=== PATIENT | male | born 1985 | race Two or more races ===

== ENCOUNTER 2023-12-01 11:16 | Inpatient (IN) | payer MEDICAID ==
[~2023-12-01] VITALS: Ht 185.4 cm; Wt 100.4 kg
[2023-12-01] MEDS: CLINDAMYCIN 600MG IV 50 ML IV ONE (12:30)
[2023-12-01 12:52] LABS: Basophils # (auto) 0.1 10 ^3/uL (0-0.2); Basophils % (auto) 0.8 % (0.0-2.0); Eosinophils # (auto) 0.1 10 ^3/uL (0-0.8); Eosinophils % (auto) 1.5 % (0.0-7.0); Hematocrit 49.3 % (41.0-53.0); Hemoglobin 16.9 g/dL (13.5-17.5); Lymphocytes # (auto) 2.6 10 ^3/uL (0.4-5.4); Mean Corpuscular Hemoglobin 31.1 pg (28.0-32.0); Mean Corpuscular Hgb Conc. 34.4 g/dL (32.0-36.0); Mean Corpuscular Volume 90.3 fL (80.0-100.0); Monocytes # (auto) 0.7 10 ^3/uL (0-1.3); Neutrophils # (auto) 4.8 10 ^3/uL (1.6-8.6); Neutrophils % (auto) 57.7 % (37.0-80.0); Nucleated Red Blood Cells % 0.1 %; Red Blood Cells 5.46 10^6/uL (4.5-5.90); Red Cell Distribution Width 12.9 % (11.8-14.3); White Blood Cell 8.2 10^3/uL (4.4-10.8)
[2023-12-01] MEDS: SODIUM CHLORIDE 0.9% 1,000 ML IV ONE (12:52)
[2023-12-01] MEDS: cefTRIAXone 1GM/50ML D5W 50 ML IV ONE (12:55)
[2023-12-01 13:05] LABS: Chloride 105 mmol/L (98-107); Potassium 4.4 mmol/L (3.5-5.1); Sodium 139 mmol/L (136-145)
[2023-12-01 13:06] LABS: Anion Gap 5 (5-15); Calcium 9.4 mg/dL (8.5-10.1); Carbon Dioxide 29 mmol/L (20-30)
[2023-12-01 13:11] LABS: BUN/Creatinine Ratio 13.8 (10.0-20.0); Blood Urea Nitrogen 11 mg/dL (9-23); Glucose 100 mg/dL (74-106)
[2023-12-01] MEDS ORDERED: ACETAMINOPHEN 325 MG TAB PO PRN (15:15)
[2023-12-01] MEDS ORDERED: MORPHINE SULFATE INJ 2 MG/ml SYRG IV PRN ×2 (15:15)
[2023-12-01] MEDS ORDERED: ONDANSETRON HCL 4 MG/2 ML VIAL IV PRN (15:15)
[2023-12-01] MEDS ORDERED: NITROGLYCERIN 0.4 MG SL TAB SL PRN (15:15)
[2023-12-01] MEDS ORDERED: DOCUSATE SOD 100 MG CAP PO PRN (15:15)
[2023-12-01] MEDS ORDERED: HYDROcodone-ACET 5/325MG TAB PO PRN (15:15)
[2023-12-01 17:12] VITALS: PULSE 61; RESP 19; O2SAT 98
[2023-12-01 17:32] VITALS: BP 127/82; PULSE 64; RESP 16; TEMP 97.8; O2SAT 100
[2023-12-01 20:00] VITALS: PULSE 70; RESP 18; O2SAT 98
[2023-12-01 21:00] VITALS: BP 112/74; PULSE 70; RESP 18; TEMP 98.3; O2SAT 98
[2023-12-01] MEDS: CLINDAMYCIN 600MG IV 50 ML IV SCH (22:23)
[2023-12-02] VITALS (8 sets, daily range): BP systolic 109–127; BP diastolic 74–83; PULSE 53–76; RESP 16–21; TEMP 97.6–98.2; O2SAT 97–99
[2023-12-02 07:05] LABS: Basophils # (auto) 0.1 10 ^3/uL (0-0.2); Basophils % (auto) 0.7 % (0.0-2.0); Eosinophils # (auto) 0.2 10 ^3/uL (0-0.8); Eosinophils % (auto) 1.9 % (0.0-7.0); Hematocrit 42.9 % (41.0-53.0); Hemoglobin 14.9 g/dL (13.5-17.5); Lymphocytes # (auto) 2.5 10 ^3/uL (0.4-5.4); Lymphocytes % (auto) 29.8 % (10.0-50.0); Mean Corpuscular Hemoglobin 31.4 pg (28.0-32.0); Mean Corpuscular Hgb Conc. 34.8 g/dL (32.0-36.0); Mean Corpuscular Volume 90.4 fL (80.0-100.0); Monocytes # (auto) 0.8 10 ^3/uL (0-1.3); Monocytes % (auto) 9.1 % (0.0-12.0); Neutrophils # (auto) 4.9 10 ^3/uL (1.6-8.6); Neutrophils % (auto) 58.5 % (37.0-80.0); Nucleated Red Blood Cells % 0.1 %; Red Blood Cells 4.75 10^6/uL (4.5-5.90); Red Cell Distribution Width 12.6 % (11.8-14.3); White Blood Cell 8.4 10^3/uL (4.4-10.8)
[2023-12-02 07:39] LABS: Alanine Aminotransferase 39 U/L (7-40); Alkaline Phosphatase 85 U/L (46-116); Anion Gap 8 (5-15); BUN/Creatinine Ratio 12.2 (10.0-20.0); Blood Urea Nitrogen 10 mg/dL (9-23); Calcium 9.2 mg/dL (8.7-10.4); Carbon Dioxide 30 mmol/L (20-30); Chloride 104 mmol/L (98-107); Glucose 97 mg/dL (74-106); Potassium 4.1 mmol/L (3.5-5.1); Sodium 142 mmol/L (136-145)
[2023-12-02 07:40] LABS: Albumin 3.7 g/dL (3.2-4.8); Aspartate Aminotransferase 21 U/L (13-40); Bilirubin, Total 0.8 mg/dL (0.2-1.0); Total Protein 6.4 g/dL (5.7-8.2)
[2023-12-02] MEDS: cefTRIAXone 1GM/50ML D5W 50 ML IV SCH (08:53)
[2023-12-03 01:00] VITALS: BP 114/75; PULSE 69; RESP 19; TEMP 97.6; O2SAT 98
[2023-12-03 05:00] VITALS: BP 105/73; PULSE 53; RESP 16; TEMP 98.2; O2SAT 98
[2023-12-03 08:00] VITALS: PULSE 62; RESP 18; O2SAT 97
[2023-12-03 09:00] VITALS: BP 104/71; PULSE 60; RESP 18; TEMP 97.6; O2SAT 99
[2023-12-03] MEDS ORDERED: LEVO500T91 PO (09:37)
[2023-12-03 13:00] VITALS: BP 106/73; PULSE 62; RESP 18; TEMP 98; O2SAT 97
[2023-12-03 14:48] VITALS: BP 106/73; PULSE 62; RESP 18; TEMP 98; O2SAT 97
== END 2023-12-03 16:40 | disposition home or self-care (01) | DRG 383 ==
LOC: ER 11:16 → OVERFLOW 15:08 → CENTRAL 17:17
PROVIDERS: ADMIT Nurse Practitioner Family; ATTEND Internal Medicine
DX: L03.115 Cellulitis of right lower limb (principal); S81.831A Puncture wound without foreign body, right lower leg, initial encounter; X58.XXXA Exposure to other specified factors, initial encounter; Y93.89 Activity, other specified; Y92.89 Other specified places as the place of occurrence of the external cause; Y99.8 Other external cause status
CPT/HCPCS: 36415; 80048; 80053; 83605; 85025; 87040; 87205; G0378; J3490